=== PATIENT | female | born 1965 | race Two or more races ===

== ENCOUNTER 2020-02-29 19:42 | Inpatient (IN) | payer OTHER ==
[~2020-02-29] VITALS: Ht 160 cm; Wt 94.8 kg
[~2020-02-29 19:42] MED LIST: ACET325T14 PO; ASPI81TA45 PO; FAMO-79 PO; LISI5TAB7 PO
[2020-02-29] MEDS ORDERED: ONDANSETRON 2MG/ML, 2ML IVPush ONE (20:30)
[2020-02-29] MEDS ORDERED: SODIUM CHLORIDE FLUSH 10ML SYR IVF ONE (20:30)
[2020-02-29] MEDS ORDERED: MORPHINE SULFATE 4 MG/ML, 1ML IVPush PRN (20:30)
[2020-02-29] MEDS ORDERED: SODIUM CHLORIDE 0.9% 1,000 ML IV ONE (20:30)
[2020-02-29 20:42] LABS: BASOPHILS % (AUTO) 0 % (0-1); MONOCYTES % (AUTO) 1 % (2-9)
[2020-02-29 20:53] LABS: ALANINE AMINOTRANSFERASE 22 U/L (12-78); ALBUMIN 1.8 g/dL (3.4-5.0); ANION GAP 14 mmol/L (5-15); CALCIUM 8.8 mg/dL (8.5-10.1); CHLORIDE 103 mmol/L (98-107); CREATININE 2.02 mg/dL (0.55-1.02)
[2020-02-29 20:55] LABS: ALKALINE PHOSPHATASE 469 U/L (45-117); BILIRUBIN,TOTAL 1.2 mg/dL (0.2-1.0)
[2020-02-29] MEDS ORDERED: POTASSIUM CHLORIDE 40 MEQ in SODIUM CHLORIDE 0.9% 500 ML IV ONE (21:00)
[2020-02-29 21:14] LABS: EOSINOPHILS % (AUTO) 2 % (1-7); LYMPHOCYTES % (AUTO) 6 % (22-44); MEAN CORPUSCULAR HEMOGLOBIN 28.1 pg (27.0-34.8); MEAN CORPUSCULAR HGB CONC 33.5 g/dL (32.4-35.8); MEAN PLATELET VOLUME 9.9 fL (7.4-10.4); NEUTROPHILS % (AUTO) 92 % (42-75); RED BLOOD COUNT 4.45 x10^6/uL (3.82-5.3); RED CELL DISTRIBUTION WIDTH 14.6 % (9.6-15.2)
[2020-02-29 21:23] LABS: MD SCAN; PLATELET COUNT 24 x10^3/uL (130-400)
[2020-02-29] MEDS ORDERED: ACETAMINOPHEN 500 MG TABLET PO ONE (21:30)
[2020-02-29] MEDS ORDERED: CEFTRIAXONE PMX 2GM/50ML 50 ML IVPB ONE (21:30)
--- NOTE | 2020-02-29 21:30 | NUR ---
RETURNED FROM CT
[2020-02-29] MEDS ORDERED: MORPHINE SULFATE 4 MG/ML, 1ML ONE (21:32)
[2020-02-29] MEDS ORDERED: CEFTRIAXONE PMX 2GM/50ML 50 ML ONE (21:33)
[2020-02-29] MEDS ORDERED: ONDANSETRON 2MG/ML, 2ML ONE (21:33)
[2020-02-29] MEDS ORDERED: ACETAMINOPHEN 500 MG TABLET ONE (21:33)
[2020-02-29 21:49] LABS: ACETONE, SERUM Negative (Negative)
[2020-02-29 22:15] LABS: INTERNATIONAL NORMALIZED RATIO 0.94 (0.93-1.1)
--- NOTE | 2020-02-29 22:16 | NUR ---
THROUGHPUT RN: PT BEING ADMITTING TO MED TELE. CALLED ADMITTING, SPOKE WITH DARRON ABOUT PT INUS[employer]ANCE ([employer]), PER DARRON THIS "[employer] IS CONTRACTED/ACCEPTED, GO AHEAD WITH ADMIT."
--- NOTE | 2020-02-29 22:23 | NUR ---
DR VILLALBA AT BS. PT'S SON AT BS (SAMI SPEAKING).
[2020-02-29] MEDS ORDERED: NAPR-685 PO (22:28)
[2020-02-29] MEDS ORDERED: OSEL75CA14 PO (22:28)
[2020-02-29] MEDS ORDERED: CYCL-259 PO (22:28)
[2020-02-29] MEDS ORDERED: AMOX1TAB12 PO (22:28)
[2020-02-29] MEDS ORDERED: MELO15TA24 PO (22:28)
[2020-02-29] MEDS ORDERED: LOSA100T14 PO (22:28)
[2020-02-29] MEDS ORDERED: HYDR12.59 PO (22:28)
[2020-02-29] MEDS ORDERED: SODIUM CHLORIDE 0.9%, 500ML IVBOLUS ONE (22:30)
--- NOTE | 2020-02-29 22:30 | NUR ---
LAST ORAL INTAKE: SMALL BITE OF CHICKEN AT 1700
--- NOTE | 2020-02-29 22:38 | NUR ---
DR VALDIVIA AWARE OF DECREASING BP. PT TO BE MOVED TO TRAUMA ROOM.
[2020-02-29 22:43] LABS: D-DIMER (DIC) 15.24 ug/mlFEU (0.00-0.52)
[2020-02-29 22:45] LABS: MICROSCOPIC INDICATED
--- NOTE | 2020-02-29 22:45 | NUR ---
PT MOVED TO TRAUMA 04. PT REPORT TO RUSTAM Smith RN.
[2020-02-29 22:48] LABS: CHLORIDE,URINE RANDOM 42 mmol/L; POTASSIUM,URINE RANDOM 21 mmol/L; SODIUM,URINE RANDOM 35 mmol/L
[2020-02-29] MEDS ORDERED: DOCUSATE 100 MG CAPSULE PO PRN (23:00)
[2020-02-29] MEDS ORDERED: KETOROLAC 30 MG/1 ML IV PRN (23:00)
[2020-02-29] MEDS ORDERED: morphine SULFATE 10 MG/ML, 1ML IVPush PRN (23:00)
[2020-02-29] MEDS ORDERED: OMNIPAQUE 350 MG/ML, 50 ML BOTTLE IV ONE (23:00)
--- NOTE | 2020-02-29 23:00 | NUR ---
Pt moved from room to Trauma room at this time. Report received from VALERIE Perales. Assumed care of pt. Pt hypotensive 70's/40's. Two liter bolus started on bilat PIV's at this time. Pt positioned for comfort and improvement of circulation. Pt AO x 4. Skin warm and dry and appropriate for ethinicity. Pt on cont BP, cardic and SPO2 monitors. MONICA Daniels at bedside for emergent insertion of central line for pressors. Signed consent obtained. Dell at bedside. Pt's pressure slightly improved at 80's/50's. Pt verbalizes understanding of procedure. OR standing by to take patient.
--- NOTE | 2020-02-29 23:04 | NUR ---
PT REPORT CALLED TO OR.
[2020-02-29] MEDS ORDERED: FENTANYL PF 100 MCG/2ML ONE (23:08)
[2020-02-29] MEDS ORDERED: MIDAZOLAM 1 MG/ML, 2ML ONE (23:08)
[2020-02-29 23:29] LABS: OSMOLALITY,URINE 483 mOsm/kg (500-850)
[2020-02-29] MEDS ORDERED: PROPOFOL 10 MG/ML, 20ML ONE (23:33)
[2020-02-29] MEDS ORDERED: VASOPRESSIN 20 UNIT/ML, 1ML ONE (23:33)
[2020-02-29] MEDS ORDERED: PHENYLEPHRINE 10 MG/ML ONE (23:33)
--- NOTE | 2020-02-29 23:46 | NUR ---
Pt transported to sx. BP improved prior to transport at 107/55. Per Dr. Daniels we are to hold Norepi but to have it on standby for OR. MAGAZINE WRITERVALERIE Vargas and surgeon notified and aware.
[2020-02-29] MEDS ORDERED: VANCOMYCIN 1,000 MG ONE (23:49)
[2020-02-29] MEDS ORDERED: PIPERACILLIN/TAZO/PMX 3.375GM 50 ML ONE (23:50)
[2020-03-01] MEDS ORDERED: VANCOMYCIN PER PHARMACY MC PRN (00:30)
[2020-03-01 01:20] LABS: ADP CARTRIDGE > 123 SECONDS (64-123); PLATELET (PFA) 24 x10^3/uL (130-400)
[2020-03-01] MEDS: SODIUM CHLORIDE 0.9% 1,000 ML IV SCH ×2 (01:44→08:11)
[2020-03-01 02:06] VITALS: BP 112/61
[2020-03-01] MEDS: ACETAMINOPHEN 325 MG TABLET PO PRN ×2 (02:21→17:45)
[2020-03-01] MEDS ORDERED: PHARMACOKINETIC MONITORING MC PRN (03:00)
[2020-03-01 03:32] LABS: MEAN CORPUSCULAR HEMOGLOBIN 27.9 pg (27.0-34.8); MEAN CORPUSCULAR HGB CONC 33.2 g/dL (32.4-35.8); MEAN PLATELET VOLUME 8.5 fL (7.4-10.4); RED BLOOD COUNT 3.52 x10^6/uL (3.82-5.3); RED CELL DISTRIBUTION WIDTH 14.8 % (9.6-15.2)
[2020-03-01 03:44] LABS: ANION GAP 6 mmol/L (5-15); CALCIUM 7.3 mg/dL (8.5-10.1); CHLORIDE 112 mmol/L (98-107); CREATININE 1.94 mg/dL (0.55-1.02); PLATELET COUNT 34 x10^3/uL (130-400)
[2020-03-01 04:03] LABS: MD YES
[2020-03-01 04:06] LABS: <PLATELET ESTIMATE> DECREASED; <PLT MORPHOLOGY> NORMAL PLT MORPH; <RBC MORPHOLOGY> NORMAL; BAND#(MANUAL) 5.49 x10^3/uL; BANDS%(MANUAL) 26 % (0-7); LYMPH#(MANUAL) 0.21 x10^3/uL (1-3.4); LYMPHS% (MANUAL) 1 % (22-44); MONOS#(MANUAL) 0.21 x10^3/uL (0.3-2.7); MONOS% (MANUAL) 1 % (2-9); SEG#(MANUAL) 15.19 x10^3/uL (1.8-6.8); SEGS% (MANUAL) 72 % (42-75)
[2020-03-01 04:07] LABS: PMNS WITH VACUOLES 1+
[2020-03-01] MEDS: NOREPINEPHRINE 8 MG in SODIUM CHLORIDE 0.9% 242 ML IV PRN ×2 (06:47)
[2020-03-01] MEDS ORDERED: ERGOCALCIFEROL 50,000 UNIT CAPSULE PO SCH (07:00)
[2020-03-01] MEDS: PIPERACILLIN/TAZO/PMX 3.375GM 50 ML IV SCH ×2 (08:20→15:34)
[2020-03-01 19:48] VITALS: BP 101/59
[2020-03-01] MEDS ORDERED: CEFTRIAXONE PMX 1GM/50ML 50 ML IV SCH (21:30)
[2020-03-02] MEDS: PIPERACILLIN/TAZO/PMX 3.375GM 50 ML IV SCH ×4 (00:17→23:45)
[2020-03-02] MEDS: ACETAMINOPHEN 325 MG TABLET PO PRN ×2 (05:25→22:05)
[2020-03-02 08:08] LABS: MEAN CORPUSCULAR HEMOGLOBIN 28.3 pg (27.0-34.8); MEAN CORPUSCULAR HGB CONC 33.5 g/dL (32.4-35.8); RED BLOOD COUNT 3.28 x10^6/uL (3.82-5.3); RED CELL DISTRIBUTION WIDTH 14.9 % (9.6-15.2)
[2020-03-02 08:19] LABS: ANION GAP 6 mmol/L (5-15); CHLORIDE 114 mmol/L (98-107); CREATININE 1.28 mg/dL (0.55-1.02)
[2020-03-02 09:30] VITALS: BP 120/76
[2020-03-02 11:14] LABS: PLATELET COUNT 30 x10^3/uL (130-400)
[2020-03-02 11:15] LABS: MD YES
[2020-03-02 11:17] LABS: <PLATELET ESTIMATE> DECREASED; <RBC MORPHOLOGY> NORMAL; BAND#(MANUAL) 0.26 x10^3/uL; BANDS%(MANUAL) 2 % (0-7); EOS#(MANUAL) 0.13 x10^3/uL (0.0-0.4); EOS% (MANUAL) 1 % (1-7); LARGE PLATELETS 1+; LYMPH#(MANUAL) 2.38 x10^3/uL (1-3.4); LYMPHS% (MANUAL) 18 % (22-44); MONOS#(MANUAL) 0.26 x10^3/uL (0.3-2.7); MONOS% (MANUAL) 2 % (2-9); PMNS WITH VACUOLES 1+; REACTIVE LYMPHS # (MANUAL) 0.13 x10^3/uL (0-0); REACTIVE LYMPHS % (MANUAL) 1 % (0-0); SEG#(MANUAL) 10.03 x10^3/uL (1.8-6.8); SEGS% (MANUAL) 76 % (42-75); TOXIC GRAN 1+
[2020-03-02 14:59] VITALS: BP 128/84
[2020-03-02 19:10] VITALS: BP 108/70
[2020-03-03 00:22] VITALS: BP 100/61
[2020-03-03 08:00] VITALS: BP 132/83
[2020-03-03] MEDS: PIPERACILLIN/TAZO/PMX 3.375GM 50 ML IV SCH (08:10)
[2020-03-03] MEDS ORDERED: ERGO500017 PO (10:39)
[2020-03-03] MEDS ORDERED: CEPH-367 PO (10:39)
== END 2020-03-03 15:08 | disposition home or self-care (01) | DRG 853 ==
LOC: OR 20:12 → EDIP 23:24 → CCU 03-01 00:58 → 3N 03-01 18:27
PROVIDERS: ADMIT Family Medicine; ATTEND Internal Medicine
PROC: 30233R1 Transfusion of Nonautologous Platelets into Peripheral Vein, Percutaneous Approach (ICD-10-PCS; 2020-02-29)
PROC: 02HV33Z Insertion of Infusion Device into Superior Vena Cava, Percutaneous Approach (ICD-10-PCS; 2020-02-29)
PROC: B548ZZA Ultrasonography of Superior Vena Cava, Guidance (ICD-10-PCS; 2020-02-29)
PROC: 0T9B30Z Drainage of Bladder with Drainage Device, Percutaneous Approach (ICD-10-PCS; principal; 2020-02-29 22:45)
PROC: 0T768DZ Dilation of Right Ureter with Intraluminal Device, Via Natural or Artificial Opening Endoscopic (ICD-10-PCS; 2020-03-01)
DX: A41.9 Sepsis, unspecified organism (principal); N17.0 Acute kidney failure with tubular necrosis; R65.21 Severe sepsis with septic shock; N13.6 Pyonephrosis; Z20.828 Contact with and (suspected) exposure to other viral communicable diseases; I10 Essential (primary) hypertension; D69.6 Thrombocytopenia, unspecified; E11.9 Type 2 diabetes mellitus without complications; E66.9 Obesity, unspecified; E87.6 Hypokalemia; N30.80 Other cystitis without hematuria; B02.9 Zoster without complications; I95.9 Hypotension, unspecified; Z87.442 Personal history of urinary calculi; Z79.899 Other long term (current) drug therapy; Z79.891 Long term (current) use of opiate analgesic; Z79.01 Long term (current) use of anticoagulants; Z98.891 History of uterine scar from previous surgery; Z95.818 Presence of other cardiac implants and grafts; Z90.49 Acquired absence of other specified parts of digestive tract; Z79.82 Long term (current) use of aspirin; Z82.5 Family history of asthma and other chronic lower respiratory diseases; Z68.37 Body mass index [BMI] 37.0-37.9, adult
CPT/HCPCS: 36415; 36556; 71045; 74176; 74420; 80048; 80053; 81001; 82010; 82306; 82330; 82436; 82800; 83605; 83615; 83690; 83735; 83930; 83935; 83970; 84133; 84300; 85014; 85025; 85049; 85379; 85384; 85576; 85610; 85730; 86850; 86900; 87040; 87077; 87081; 87086; 87186; 87635; 93005; 96374; 96375; 99291; G0378; J0696; J2250; J2405; J2543; J2704; J3010; J3370; J3480; Q9967; C1769; C2617; J2370; J7030; J7040; J7050; P9035

== ENCOUNTER 2020-03-28 12:56 | Day surgery (SDC) | payer OTHER ==
[~2020-03-28] VITALS: Ht 154.9 cm; Wt 88.8 kg
[~2020-03-28 12:56] MED LIST changes: +AMOX1TAB12 PO; +CEPH-367 PO; +CYCL-259 PO; +ERGO500017 PO; +HYDR12.59 PO; +LOSA100T14 PO; +MELO15TA24 PO; +NAPR-685 PO; +OSEL75CA14 PO
[2020-03-28] MEDS ORDERED: LOSA100T14 PO (13:23)
[2020-03-28] MEDS ORDERED: ERGO500018 PO (13:23)
[2020-03-28 13:30] VITALS: BP 139/84
[2020-03-28] MEDS ORDERED: CHLORHEXIDINE 15 ML UDC ONE (13:44)
[2020-03-28] MEDS ORDERED: CHLORHEXIDINE 15 ML UDC MM ONE (14:00)
[2020-03-28] MEDS ORDERED: LACTATED RINGERS 1,000 ML IV SCH (14:00)
[2020-03-28 15:56] LABS: ALANINE AMINOTRANSFERASE 27 U/L (12-78); ANION GAP 8 mmol/L (5-15); CALCIUM 9.9 mg/dL (8.5-10.1); CHLORIDE 108 mmol/L (98-107)
[2020-03-28 15:59] LABS: ALKALINE PHOSPHATASE 114 U/L (45-117); BILIRUBIN,TOTAL 0.4 mg/dL (0.2-1.0); CREATININE 0.77 mg/dL (0.55-1.02); TOTAL PROTEIN 8.9 g/dL (6.4-8.2)
[2020-03-28] MEDS ORDERED: MIDAZOLAM 1 MG/ML, 2ML ONE (16:12)
[2020-03-28] MEDS ORDERED: FENTANYL PF 250 MCG/5ML ONE (16:13)
[2020-03-28] MEDS ORDERED: LIDOCAINE 4%, 4 ML SYR/CANN TP ONE (16:20)
[2020-03-28] MEDS ORDERED: LIDOCAINE-MPF 2% ,5ML ONE (16:20)
[2020-03-28] MEDS ORDERED: HYDROmorphone 1 MG/ML, 1ML INJ IVPush PRN (16:30)
[2020-03-28] MEDS ORDERED: METHOCARBAMOL 1,000 MG in DEXTROSE 5% 100 ML IV PRN (16:30)
[2020-03-28] MEDS ORDERED: ACETAMINOPHEN 325 MG TABLET PO PRN (16:30)
[2020-03-28] MEDS ORDERED: LABETALOL 5MG/ML, 20ML IV PRN (16:30)
[2020-03-28] MEDS ORDERED: PROMETHAZINE 25 MG SUPP PR PRN (16:30)
[2020-03-28] MEDS ORDERED: hydrALAzine 20 MG/ML, 1ML IV PRN (16:30)
[2020-03-28] MEDS ORDERED: MEPERIDINE/PF 25MG/0.5ML IVPush PRN (16:30)
[2020-03-28] MEDS ORDERED: LORazepam 2 MG/ML, 1ML IVPush PRN (16:30)
[2020-03-28] MEDS ORDERED: ONDANSETRON 2MG/ML, 2ML IVPush PRN (16:30)
[2020-03-28] MEDS ORDERED: PROMETHAZINE 25 MG/ML, 1ML IVPush PRN (16:30)
[2020-03-28] MEDS ORDERED: NEOSTIGMINE 1 MG/ML, 10ML ONE (17:00)
[2020-03-28] MEDS ORDERED: DEXAMETHASONE 4 MG/ML, 1ML ONE (17:00)
[2020-03-28] MEDS ORDERED: ROCURONIUM 10MG/ML,5ML ONE (17:00)
[2020-03-28] MEDS ORDERED: GLYCOPYRROLATE 0.2MG/1ML, 5ML ONE (17:00)
[2020-03-28] MEDS ORDERED: SUCCINYLCHOLINE 20 MG/ML, 10ML ONE (17:00)
[2020-03-28] MEDS ORDERED: CEFAZOLIN 1,000 MG ONE (17:00)
[2020-03-28] MEDS ORDERED: PROPOFOL 10 MG/ML, 20ML ONE (17:00)
[2020-03-28] MEDS ORDERED: ONDANSETRON 2MG/ML, 2ML ONE (17:00)
[2020-03-28] MEDS ORDERED: SUGAMMADEX 200 MG/2 ML IVPush ONE (17:02)
[2020-03-28] MEDS ORDERED: FENTANYL PF 100 MCG/2ML ONE (17:15)
[2020-03-28] MEDS ORDERED: OXYcodone 5 MG/5 ML ORAL.SOL UDC ONE (17:15)
[2020-03-28] MEDS: FENTANYL PF 100 MCG/2ML IV PRN ×2 (17:18→17:24)
[2020-03-28] MEDS: OXYcodone 5 MG/5 ML ORAL.SOL UDC PO PRN ×2 (17:20→17:37)
== END 2020-03-28 20:00 | disposition home or self-care (01) ==
LOC: OUT 12:56
PROVIDERS: ATTEND Student in an Organized Health Care Education/Training Program
DX: N20.2 Calculus of kidney with calculus of ureter (principal); I10 Essential (primary) hypertension; Z20.828 Contact with and (suspected) exposure to other viral communicable diseases; Z79.899 Other long term (current) drug therapy; Z82.5 Family history of asthma and other chronic lower respiratory diseases; Z98.890 Other specified postprocedural states
CPT/HCPCS: 36415; 52352; 52353; 74018; 80053; 82360; 87635; 88300; C1769; J0330; J0690; J1100; J2250; J2405; J2704; J2710; J3010; J7120; 76000

== ENCOUNTER → 2020-06-09 | Outpatient (CLI) | payer BC ==
[~2020-06-09] MED LIST changes: -CYCL-259 PO; +CYCL10TA2 PO; +ERGO500018 PO
== END | disposition home or self-care (01) ==
LOC: RAD 10:40
PROVIDERS: ATTEND Student in an Organized Health Care Education/Training Program
DX: N20.0 Calculus of kidney (principal)
CPT/HCPCS: 76770